=== PATIENT | female | born 1970 | race Caucasian/White ===

== ENCOUNTER → 2020-11-28 00:37 | Outpatient (CLI) | payer BC, SELFPAY ==
[2020-11-28 19:49] LABS: SARS-CoV-2 RNA PCR Negative
== END ==
PROVIDERS: PCP Family Medicine Sports Medicine; Visit Provider Internal Medicine Gastroenterology
DX: Z01.812 Encounter for preprocedural laboratory examination (principal); Z20.822 Contact with and (suspected) exposure to COVID-19
CPT/HCPCS: C9803; U0003; U0005

== ENCOUNTER 2020-12-02 01:39 | Day surgery (SDC) | payer BC, SELFPAY ==
[2020-11-12 09:30] VITALS: BMI 32.6
[2020-12-02] MEDS: LACTATED RINGERS 1,000 ML 150 ML IV CONT (08:59)
[2020-12-02 09:00] VITALS: BP 128/85; PULSE 96; RESP 16; TEMP 36.1; O2SAT 96; BMI 32.6
--- NOTE | 2020-12-02 09:04 | WPDANESEPPF ---
Anes - Initial Pre Proc Eval Procedure: Operation Date: 12/02/20 09:30 Proposed Procedures p Screening Colonoscopy - Don Laurent MD Date/Time: 12/02/20 09:04 Surgeon: Don Laurent MD Pre Op Diagnosis: Neoplasm Screening Patient Data Age: 50 Gender: F Height: 5 ft 5 in Weight: 89.1 kg Last Vital Signs Temp 36.1 C L 12/02/20 09:00 Pulse 96 12/02/20 09:00 Resp 16 12/02/20 09:00 BP 128/85 12/02/20 09:00 Pulse Ox 96 12/02/20 09:00 Allergies Allergy/AdvReac Type Severity Reaction Status Date / Time No Known Allergies Allergy Verified 12/02/20 08:45 Home Medications Medication Instructions Recorded Confirmed Type sodium,potassium,mag sulfates See Rx Instructions .ROUTE 11/10/20 Rx [Suprep Bowel Prep Kit] .COMPLEX #1 ml bupropion HCl 300 mg PO DAILY 11/12/20 11/12/20 History escitalopram oxalate 10 mg PO DAILY 11/12/20 11/12/20 History Patient hx anesthesia problems: none Family hx anesthesia problems: none PMFSH Past Medical History Medical History (Updated 12/02/20 @ 09:04 by Sammy Caba MD) Anxiety Depression Obesity Surgical History Surgical History (Updated 12/02/20 @ 09:06 by Sammy Caba MD) History of tubal ligation Social History Social History Smoking status: Never smoker Alcohol intake: current Alcohol use details: RARELY Substance use: never Living arrangements: with family Gender identity (if verbalized by the patient): Female Spiritual care concerns: No Anes - Eval Final PreProcedure Day of Procedure 12/02/20 09:04 Patient weight: obese Heart: regular rate and rhythm Lungs: clear to auscultation Airway: Mallampati scale class II Neurological: alert and oriented Last oral intake: >/= 8 hours ASA classification: II Emergent: no Anesthetic plan: proceed Anesthesia type and monitoring: general GIVS and standard monitoring Informed Consent: The patient's anesthetic plan and its attendant risks and benefits were discussed with the patient/family/POA. Questions were solicited and answers provided to the satisfaction of the patient/family/POA.
--- NOTE | 2020-12-02 10:02 | PM.HPGS ---
History of Present Illness History of Present Illness Consent: Risks, benefits, and alternatives have been discussed and questions answered. Patient agrees to proceed with procedure. Chief complaint: Neoplasm Screening Narrative: Olga Lidia Bennett is a 50 year old female here for first screening colonoscopy Review of Systems Constitutional: Constitutional: Denies headache(s) and Denies weakness Eyes: Eyes: Denies blurry vision ENT: Reports Normal hearing present, Denies headache(s) and Denies neck pain Cardiovascular: Cardiovascular: Denies chest pain and Denies dyspnea Respiratory: Respiratory: Denies dyspnea Gastrointestinal: Gastrointestinal: Reports no additional gastrointestinal complaints Genitourinary: Genitourinary: Denies dysuria Musculoskeletal: Musculoskeletal: Denies neck pain Integumentary/Breasts: Skin/Breast: Denies dry skin Neurologic: Reports Normal hearing present, Denies headache(s) and Denies weakness Psychiatric: Psychiatric: Denies anxiety Endocrine: Endocrine: Denies change in body appearance Hematologic/Lymphatic: Hematologic/Lymphatic: Denies easy bleeding Allergic/Immunologic: Allergic/Immunologic: Denies urticaria [facility] Past Medical History Medical History (Updated 12/02/20 @ 10:03 by Don Laurent MD) Anxiety Colon cancer screening Depression Obesity Surgical History Surgical History (Updated 12/02/20 @ 09:06 by Sammy Caba MD) History of tubal ligation Social History Social History Smoking status: Never smoker Alcohol intake: current Alcohol use details: RARELY Substance use: never Living arrangements: with family Gender identity (if verbalized by the patient): Female Spiritual care concerns: No Meds Home Medications and Allergies Home Medications Medication Instructions Recorded Confirmed Type sodium,potassium,mag sulfates See Rx Instructions .ROUTE 11/10/20 Rx [Suprep Bowel Prep Kit] .COMPLEX #1 ml bupropion HCl 300 mg PO DAILY 11/12/20 11/12/20 History escitalopram oxalate 10 mg PO DAILY 11/12/20 11/12/20 History Allergies Allergy/AdvReac Type Severity Reaction Status Date / Time No Known Allergies Allergy Verified 12/02/20 08:45 Vital Signs Vital Signs - 24 hr 12/02/20 09:00 Temperature 97 F L Pulse Rate 96 Respiratory Rate 16 Blood Pressure 128/85 Pulse Oximetry 96 Exam Const: General: comfortable and no acute distress HENMT: General nose exam: Normal nares present Eyes: General: appearance normal, both eyes and all related structures Neck: Neck: no JVD Resp: Auscultation: clear to auscultation bilaterally Cardio: Rate: regular rate Rhythm: regular rhythm GI: Inspection: non-distended GI Palp: Yes Soft to palpation Skin: General skin exam: normal color Neuro: General: gait normal Speech: normal speech Extrem: General: normal to inspection Psych: Mental Status: mental status grossly normal Assessment and Plan Assessment and plan (1) Colon cancer screening: Code(s): Z12.11 - Encounter for screening for malignant neoplasm of colon Status: Acute Assessment and Plan: proceed with colonoscopy
[2020-12-02 10:06] VITALS: BP 108/72; PULSE 89; RESP 18; O2SAT 97
[2020-12-02 10:16] VITALS: BP 118/68; PULSE 86; RESP 20; O2SAT 98
[2020-12-02 10:26] VITALS: BP 122/80; PULSE 76; RESP 18; O2SAT 98
== END 2020-12-02 10:40 | disposition home or self-care (01) ==
PROVIDERS: PCP Family Medicine Sports Medicine; Visit Provider Internal Medicine Gastroenterology
PROC: 0DJD8ZZ Inspection of Lower Intestinal Tract, Via Natural or Artificial Opening Endoscopic (ICD-10-PCS; CPT 45378; principal; 2020-12-02 09:30)
DX: Z12.11 Encounter for screening for malignant neoplasm of colon (principal); K64.8 Other hemorrhoids; F41.8 Other specified anxiety disorders; E66.9 Obesity, unspecified; Z68.32 Body mass index [BMI] 32.0-32.9, adult
CPT/HCPCS: 45378; J2704; J7120

== ENCOUNTER → 2023-04-12 16:14 | Outpatient (CLI) | payer BC, SELFPAY ==
--- NOTE | ~2023-04-12 | MM_ITS ---
EXAMINATION: MM screening beto BI w loulou HISTORY: Screening mammogram TECHNIQUE: Craniocaudal and mediolateral oblique 3-D tomosynthesis images were obtained and synthetic 2-D images were generated. CAD analysis was submitted and interpreted. COMPARISON: No prior mammogram is available for comparison at this institution. BREAST PARENCHYMAL COMPOSITION: There are scattered areas of fibroglandular density. FINDINGS: Right breast: Possible approximately 5 mm mass the mid to upper right breast on MLO view (MLO Tomosynthesis image 4 /62). Probable 3.2 x 4.7 mm intramammary lymph node in the posterior mid to upper right breast on MLO view (MLO Tomosynthesis image 23/62). Diagnostic right mammogram and right breast ultrasound examination are recommended. Left breast: There is no evidence of suspicious mass, calcification, or architectural distortion to suggest malign clemente in the left breast. IMPRESSION: 1. Right breast masses 2. Diagnostic right mammogram and right breast ultrasound examination are recommended. BI-RADS Category 0: Incomplete: Needs additional imaging evaluation. Reviewed, dictated and finalized at location A. IMPRESSION: 1. Right breast masses 2. Diagnostic right mammogram and right breast ultrasound examination are recom mended. BI-RADS Category 0: Incomplete: Needs additional imaging evaluation.
== END ==
PROVIDERS: PCP Family Medicine Sports Medicine; Visit Provider Family Medicine Sports Medicine
DX: Z12.31 Encounter for screening mammogram for malignant neoplasm of breast (principal); R92.8 Other abnormal and inconclusive findings on diagnostic imaging of breast
CPT/HCPCS: 77063; 77067

== ENCOUNTER → 2023-05-19 07:48 | Outpatient (CLI) | payer BC, SELFPAY ==
--- NOTE | ~2023-05-19 | MMUS_ITS ---
EXAMINATION: MM diagnostic beto RT w loulou, US breast RT limited HISTORY: Right breast masses reported on 04/12/2023 screening mammogram examination TECHNIQUE: Additional 3-D tomosynthesis images of the right breast were performed and synthetic 2-D i mages were generated. CAD analysis was submitted and interpreted. High resolution upper outer and low er-outer quadrant right breast ultrasound was performed. COMPARISON: 04/04/2023 screening mammogram examination FINDINGS: MAMMOGRAPHIC FINDINGS: Probable approximately 3.6 x 5 mm lymph node, circumscribed, with evidence of a radiolucent hilus, in the posterior mid to upper outer right breast (MLO Tomosynthesis image 26/59). No suspicious mass or architectural distortion, malignant calcification, skin thickening or retractio n of the right breast is detected. ULTRASOUND: 11:00 5 cm from nipple: Up to approximately 1.5 x 4 millimeter hypoechoic or sonolucent area is noted , without internal vascularity or shadowing, likely benign. Six-month targeted right breast 11:00 ult rasound follow-up is recommended. No other suspicious mass or shadowing is detected. IMPRESSION: 1. Probable benign finding 2. Six-month targeted right breast ultrasound follow-up of 11:00 5 cm from nipple is recommended BI-RADS category 3, probably benign findings. Reviewed, dictated and finalized at location [facility]. IMPRESSION: 1. Probable benign finding 2. Six-month targeted right breast ultrasound follow-up of 11:00 5 cm from nipp le is recommended BI-RADS category 3, probably benign findings.
== END ==
PROVIDERS: PCP Family Medicine Sports Medicine; Visit Provider Family Medicine Sports Medicine
DX: N63.11 Unspecified lump in the right breast, upper outer quadrant (principal)
CPT/HCPCS: 76642; 77061; 77065; G0279